=== PATIENT | female | born 1975 | race Caucasian/White ===

== ENCOUNTER 2021-07-22 14:02 | Outpatient (CLI) | payer BC, SELFPAY ==
--- NOTE | 2021-07-22 | ECG_ITS ---
Measurements Intervals [place] Rate: 75 P: 14 IN: 151 QRS: 22 QRSD: 74 T: 51 QT: 386 QTc: 434 Interpretive Statements SINUS RHYTHM CANNOT RULE OUT SEPTAL INFARCT, AGE INDETERMINATE ABNORMAL ECG Electronically Signed On 07-22-2021 14:55:38 CDT by Daniel Calvillo D.O.
--- NOTE | ~2021-07-22 | XR_ITS ---
EXAMINATION: XR chest 2V 07/22/2021 14:46 INDICATION: History of bone cancer. PROCEDURE: 2 view chest COMPARISON: No prior studies for comparison. FINDINGS: The lungs are clear. The cardiomediastinal silhouette is within normal limits. There are no pleural effusions. There is no pneumothorax suspected. IMPRESSION: 1: NO ACUTE CARDIOPULMONARY DISEASE. Reviewed, dictated and finalized at location A.
== END 2021-07-22 14:03 | disposition home or self-care (01) ==
PROVIDERS: PCP Family Medicine; Visit Provider Physician Assistant
DX: Z01.818 Encounter for other preprocedural examination (principal); R94.31 Abnormal electrocardiogram [ECG] [EKG]
CPT/HCPCS: 71046; 93005